=== PATIENT | male | born 1965 | race Caucasian/White ===

== ENCOUNTER 2022-04-07 09:08 | Inpatient (IN) ==
[2022-04-07 09:50] LABS: Basophils # 0.1 K/mcL (0.0-0.2); Basophils % 0.4 %; Eosinophils % 0.1 %; Hematocrit 40.8 % (37.5-50.1); Immature Granulocytes % 2.8 % (0-4); Lymphocytes # 0.8 K/mcL (0.6-4.6); Lymphocytes % 4.3 %; Mean Corpuscular HGB Conc 34.3 g/dL (31.6-35.5); Mean Corpuscular Volume 90.3 fL (83.0-100.0); Mean Platelet Volume 9.4 fL (9.4-12.4); Monocytes # 1.3 K/mcL (0.0-1.3); Monocytes % 6.6 %; Neutrophils # 16.8 K/mcL (1.6-8.9); Platelet Count 651 K/mcL (140-400); Red Blood Count 4.52 M/mcL (4.19-5.50); Red Cell Distribution Width 13.1 % (11.5-14.5); Segmented Neutrophils % 85.8 %; White Blood Count 19.5 K/mcL (4.3-11.1)
[2022-04-07 10:04] LABS: Bilirubin,Urine Negative (Negative); Blood,Urine Negative (Negative); Clarity,Urine Clear (Clear); Color,Urine Light-Yellow (Yellow); Glucose,Urine (UA) Normal (Normal); Ketones,Urine Negative (Negative); Leukocyte Esterase,Urine Negative (Negative); Nitrite,Urine Negative (Negative); Protein,Urine Trace mg/dL (Neg-Trace); Specific Gravity,Urine 1.026 (1.010-1.025); Urobilinogen,Urine Normal (Normal)
[2022-04-07 10:11] LABS: BUN/Creatinine Ratio 22 (6-26); Blood Urea Nitrogen 30 mg/dL (6-20); Calcium 9.8 mg/dL (8.6-10.3); Carbon Dioxide 31 mEq/L (23-29); Chloride 94 mEq/L (98-107); Glucose 149 mg/dL (70-105); Osmolality,Calculated 287 (280-300); Potassium 3.8 mEq/L (3.5-5.1); Sodium 134 mEq/L (136-145); eGFR For African Americans > 60 (> 60); eGFR For Non-African Americans 52 (> 60)
[2022-04-07] MEDS ORDERED: Iopamidol - 370 500 ML MLS IVP ONE (10:43)
[2022-04-07 11:06] LABS: Alanine Aminotransferase 40 Units/L (7-52); Albumin 3.9 g/dL (3.5-5.7); Alkaline Phosphatase 112 Units/L (34-104); Aspartate Amino Transferase 24 Units/L (13-39); Bilirubin,Direct 0.1 mg/dL (0.0-0.2); Bilirubin,Indirect 0.3 mg/dL (0.0-1.0); Bilirubin,Total 0.4 mg/dL (0.3-1.0); Globulin 4.1 g/dL (2.4-3.5); Lipase 15 Units/L (11-82)
[2022-04-07] MEDS ORDERED: Gadolinium Contrast Agent (WT Based) IV PRN (11:15)
[2022-04-07] MEDS ORDERED: 0.9 % Sodium Chloride 1,000 ML IV ONE (11:15)
[2022-04-07] MEDS ORDERED: Morphine Sulfate 2 MG/ML SYRINGE IVP ONE (11:15)
[2022-04-07] MEDS ORDERED: Ketorolac 30 MG/ML VIAL IVP ONE (11:15)
[2022-04-07] MEDS ORDERED: Ondansetron 4 MG/2 ML VIAL IVP PRN (11:16)
[2022-04-07 11:41] LABS: INR 1.2; Prothrombin Time 13.8 Seconds (9.4-12.1)
[2022-04-07 11:44] LABS: Activated Partial Thrombo Time 27.6 Seconds (26.0-36.0)
[2022-04-07 11:51] LABS: C-Reactive Protein 169 mg/L (Less than 10)
[2022-04-07] MEDS ORDERED: cefTRIAXone 2,000 MG in 0.9 % Sodium Chloride 20 ML IVP ONE (12:19)
[2022-04-07] MEDS ORDERED: Vancomycin 1,250 MG/262.5 ML IV.SOLN IVPB ONE (12:30)
[2022-04-07 13:05] LABS: Troponin I < 0.03 ng/mL (< 0.04)
[2022-04-07] MEDS ORDERED: *HR* HYDROmorphone (PF) 1 MG/ML SYRINGE IVP ONE ×2 (15:47→21:49)
[2022-04-07] MEDS ORDERED: Naloxone 0.4 MG/ML INJ IVP PRN (15:55)
[2022-04-07] MEDS: *HR* Heparin 5,000 UNIT/ML VIAL SQ SCH (17:54)
[2022-04-07] MEDS: Ketorolac 30 MG/ML VIAL IVP PRN (21:39)
[2022-04-08] MEDS ORDERED: *HR* HYDROcodone/Acet 10/325 mg TABLET PO ONE (03:08)
[2022-04-08 04:40] LABS: BUN/Creatinine Ratio 28 (6-26); Blood Urea Nitrogen 34 mg/dL (6-20); Calcium 8.5 mg/dL (8.6-10.3); Carbon Dioxide 25 mEq/L (23-29); Chloride 98 mEq/L (98-107); Glucose 102 mg/dL (70-105); Osmolality,Calculated 280 (280-300); Potassium 3.5 mEq/L (3.5-5.1); Sodium 131 mEq/L (136-145); eGFR For African Americans > 60 (> 60); eGFR For Non-African Americans > 60 (> 60)
[2022-04-08 04:48] LABS: Hematocrit 37.4 % (37.5-50.1); Hemoglobin 12.6 g/dL (12.9-16.9); Mean Corpuscular HGB Conc 33.7 g/dL (31.6-35.5); Mean Corpuscular Hemoglobin 30.4 pg (28.0-33.3); Mean Corpuscular Volume 90.3 fL (83.0-100.0); Mean Platelet Volume 9.5 fL (9.4-12.4); Platelet Count 548 K/mcL (140-400); Red Blood Count 4.14 M/mcL (4.19-5.50); White Blood Count 21.5 K/mcL (4.3-11.1)
[2022-04-08] MEDS: Ketorolac 30 MG/ML VIAL IVP PRN ×3 (04:57→20:29)
[2022-04-08] MEDS: *HR* Heparin 5,000 UNIT/ML VIAL SQ SCH ×2 (06:31→17:16)
[2022-04-08 06:40] LABS: A.calcoaceticus-baumannii cplx Not Detected (Not Detect); Bacteroides fragilis by PCR Not Detected (Not Detect); Enterobacterales by PCR Not Detected (Not Detect); Enterococcus faecalis by PCR Not Detected (Not Detect); Enterococcus faecium by PCR Not Detected (Not Detect); Escherichia coli by PCR Not Detected (Not Detect); Klebsiella aerogenes by PCR Not Detected (Not Detect); Staph epidermidis by PCR Not Detected (Not Detect); Staph lugdunensis by PCR Not Detected (Not Detect); Staphylococcus aureus by PCR DETECTED (Not Detect); Streptococcus agalactiae(B)PCR Not Detected (Not Detect); Streptococcus by PCR Not Detected (Not Detect); Streptococcus pneumoniae PCR Not Detected (Not Detect); Streptococcus pyogenes (A) PCR Not Detected (Not Detect); mecA/C & MREJ (MRSA) Gene DETECTED (Not Detect)
[2022-04-08 06:41] LABS: Candida albicans by PCR Not Detected (Not Detect); Candida auris by PCR Not Detected (Not Detect); Candida glabrata by PCR Not Detected (Not Detect); Candida krusei by PCR Not Detected (Not Detect); Candida parapsilosis by PCR Not Detected (Not Detect); Candida tropicalis by PCR Not Detected (Not Detect); Crypto. neoformans/gattii PCR Not Detected (Not Detect); Enterobacter cloacae Cmplx PCR Not Detected (Not Detect); Klebs. pneumoniae group by PCR Not Detected (Not Detect); Klebsiella oxytoca by PCR Not Detected (Not Detect); Proteus by PCR Not Detected (Not Detect); Pseudomonas aeruginosa by PCR Not Detected (Not Detect); Salmonella species by PCR Not Detected (Not Detect); Serratia marcescens by PCR Not Detected (Not Detect); Stenotrophomonas maltophilia Not Detected (Not Detect)
[2022-04-08] MEDS ORDERED: *HR* HYDROmorphone (PF) 1 MG/ML SYRINGE IVP ONE (09:42)
[2022-04-08] MEDS ORDERED: 0.9 % Sodium Chloride 1,000 ML IVC ONE (09:42)
[2022-04-08] MEDS ORDERED: *HR* FentaNYL (PF) 100 MCG/2 ML VIAL IVP ONE (10:29)
[2022-04-08] MEDS ORDERED: *HR* Midazolam HCl 2 MG/2 ML VIAL IVP ONE (10:29)
[2022-04-08] MEDS: Ondansetron 4 MG/2 ML VIAL IVP PRN (11:42)
[2022-04-08] MEDS ORDERED: cefTRIAXone 2,000 MG in 0.9 % Sodium Chloride 20 ML IVP SCH (12:00)
[2022-04-08] MEDS: Vancomycin 1,250 MG/262.5 ML IV.SOLN IVPB SCH (12:55)
[2022-04-08] MEDS: amLODIPine 5 MG TABLET PO SCH (13:01)
[2022-04-08] MEDS: methocarbamoL 750 MG TABLET PO SCH ×2 (15:17→20:28)
[2022-04-08 15:51] LABS: Hepatitis B Surface Antibody 39.41 mIU/mL
[2022-04-08 16:02] LABS: Hepatitis B Surface Antigen Nonreactive (Nonreactive)
[2022-04-08 17:25] LABS: Amphetamine Screen,Urine Negative ng/mL (Cutoff=1000); Barbiturate Screen,Urine Negative ng/mL (Cutoff=200); Benzodiazepines Screen,Urine Positive ng/mL (Cutoff=200); Cannabinoid Screen,Urine Positive ng/mL (Cutoff = 50); Cocaine Screen,Urine Negative ng/mL (Cutoff= 300); Opiate Screen,Urine Positive ng/mL (Cutoff=300); Phencyclidine Screen,Urine Negative ng/mL (Cutoff=25)
[2022-04-08] MEDS: Topiramate 100 MG TABLET PO SCH (20:28)
[2022-04-09 01:39] LABS: Hematocrit 36.2 % (37.5-50.1); Hemoglobin 12.2 g/dL (12.9-16.9); Mean Corpuscular HGB Conc 33.7 g/dL (31.6-35.5); Mean Corpuscular Volume 91.9 fL (83.0-100.0); Mean Platelet Volume 9.2 fL (9.4-12.4); Platelet Count 432 K/mcL (140-400); Red Blood Count 3.94 M/mcL (4.19-5.50); Red Cell Distribution Width 13.2 % (11.5-14.5); White Blood Count 22.2 K/mcL (4.3-11.1)
[2022-04-09 02:01] LABS: BUN/Creatinine Ratio 31 (6-26); Blood Urea Nitrogen 33 mg/dL (6-20); Calcium 8.3 mg/dL (8.6-10.3); Carbon Dioxide 27 mEq/L (23-29); Chloride 97 mEq/L (98-107); Glucose 100 mg/dL (70-105); Osmolality,Calculated 283 (280-300); Potassium 3.4 mEq/L (3.5-5.1); Sodium 133 mEq/L (136-145); eGFR For African Americans > 60 (> 60); eGFR For Non-African Americans > 60 (> 60)
[2022-04-09] MEDS: Ondansetron 4 MG/2 ML VIAL IVP PRN ×2 (02:17→17:35)
[2022-04-09] MEDS: Ketorolac 30 MG/ML VIAL IVP PRN (02:18)
[2022-04-09] MEDS: *HR* Heparin 5,000 UNIT/ML VIAL SQ SCH ×2 (05:24→17:18)
[2022-04-09] MEDS: methocarbamoL 750 MG TABLET PO SCH ×3 (09:42→20:14)
[2022-04-09] MEDS: allopurinoL 300 MG TABLET PO SCH (09:42)
[2022-04-09] MEDS: Topiramate 100 MG TABLET PO SCH ×2 (09:42→20:14)
[2022-04-09] MEDS: amLODIPine 5 MG TABLET PO SCH (09:42)
[2022-04-09] MEDS: Ketorolac 30 MG/ML VIAL IVP SCH ×2 (12:03→17:18)
[2022-04-09] MEDS: Vancomycin 1,250 MG/262.5 ML IV.SOLN IVPB SCH (12:04)
[2022-04-09] MEDS ORDERED: Ringers Solution, Lactated 1,000 ML IVC ONE (17:16)
[2022-04-09] MEDS: Acetaminophen 325 MG TABLET PO PRN (20:13)
[2022-04-09] MEDS: Melatonin 3 MG TABLET PO PRN (21:40)
[2022-04-10] MEDS: Ketorolac 30 MG/ML VIAL IVP SCH ×5 (00:58→23:31)
[2022-04-10] MEDS: Vancomycin 1,250 MG/262.5 ML IV.SOLN IVPB SCH ×3 (00:58→23:31)
[2022-04-10] MEDS: *HR* Heparin 5,000 UNIT/ML VIAL SQ SCH ×2 (05:50→17:07)
[2022-04-10 07:21] LABS: Hematocrit 34.1 % (37.5-50.1); Hemoglobin 11.7 g/dL (12.9-16.9); Mean Corpuscular HGB Conc 34.3 g/dL (31.6-35.5); Mean Corpuscular Volume 90.5 fL (83.0-100.0); Mean Platelet Volume 9.2 fL (9.4-12.4); Platelet Count 409 K/mcL (140-400); Red Blood Count 3.77 M/mcL (4.19-5.50); White Blood Count 23.3 K/mcL (4.3-11.1)
[2022-04-10 07:41] LABS: BUN/Creatinine Ratio 32 (6-26); Blood Urea Nitrogen 29 mg/dL (6-20); Calcium 8.1 mg/dL (8.6-10.3); Carbon Dioxide 25 mEq/L (23-29); Chloride 100 mEq/L (98-107); Glucose 123 mg/dL (70-105); Osmolality,Calculated 281 (280-300); Potassium 3.3 mEq/L (3.5-5.1); Sodium 132 mEq/L (136-145); eGFR For African Americans > 60 (> 60); eGFR For Non-African Americans > 60 (> 60)
[2022-04-10] MEDS: Topiramate 100 MG TABLET PO SCH ×2 (07:42→21:34)
[2022-04-10] MEDS: methocarbamoL 750 MG TABLET PO SCH ×3 (07:42→21:39)
[2022-04-10] MEDS: amLODIPine 5 MG TABLET PO SCH (07:42)
[2022-04-10] MEDS: allopurinoL 300 MG TABLET PO SCH (07:43)
[2022-04-10] MEDS: Ondansetron 4 MG/2 ML VIAL IVP PRN (10:55)
[2022-04-10] MEDS ORDERED: polyethylene glycoL 3350 17 GM POWD.PACK PO PRN (17:19)
[2022-04-10] MEDS: Sennosides/Docusate Sodium TABLET PO SCH (21:34)
[2022-04-10] MEDS: Melatonin 3 MG TABLET PO PRN (21:38)
[2022-04-10] MEDS: polyethylene glycoL 3350 17 GM POWD.PACK PO SCH (21:39)
[2022-04-10] MEDS ORDERED: Morphine Sulfate 2 MG/ML SYRINGE IVP ONE (23:39)
[2022-04-11 05:14] LABS: Basophils # 0.2 K/mcL (0.0-0.2); Basophils % 0.9 %; Eosinophils # 0.2 K/mcL (0.0-0.6); Hematocrit 39.8 % (37.5-50.1); Hemoglobin 13.1 g/dL (12.9-16.9); Immature Granulocytes % 3.8 % (0-4); Lymphocytes # 1.6 K/mcL (0.6-4.6); Lymphocytes % 8.4 %; Mean Corpuscular HGB Conc 32.9 g/dL (31.6-35.5); Mean Corpuscular Hemoglobin 30.5 pg (28.0-33.3); Mean Corpuscular Volume 92.8 fL (83.0-100.0); Mean Platelet Volume 9.2 fL (9.4-12.4); Monocytes # 1.5 K/mcL (0.0-1.3); Monocytes % 8.3 %; Neutrophils # 14.4 K/mcL (1.6-8.9); Platelet Count 425 K/mcL (140-400); Red Blood Count 4.29 M/mcL (4.19-5.50); Red Cell Distribution Width 12.9 % (11.5-14.5); Segmented Neutrophils % 77.6 %; White Blood Count 18.5 K/mcL (4.3-11.1)
[2022-04-11] MEDS: Ketorolac 30 MG/ML VIAL IVP SCH ×3 (05:26→17:42)
[2022-04-11] MEDS: *HR* Heparin 5,000 UNIT/ML VIAL SQ SCH ×2 (05:26→17:41)
[2022-04-11 05:36] LABS: BUN/Creatinine Ratio 26 (6-26); Blood Urea Nitrogen 24 mg/dL (6-20); Calcium 8.4 mg/dL (8.6-10.3); Carbon Dioxide 23 mEq/L (23-29); Chloride 101 mEq/L (98-107); Glucose 104 mg/dL (70-105); Osmolality,Calculated 276 (280-300); Potassium 4.1 mEq/L (3.5-5.1); Sodium 131 mEq/L (136-145); eGFR For African Americans > 60 (> 60); eGFR For Non-African Americans > 60 (> 60)
[2022-04-11 05:37] LABS: Albumin 2.9 g/dL (3.5-5.7); Albumin/Globulin Ratio 0.8 (1.1-2.2); Bilirubin,Direct 0.3 mg/dL (0.0-0.2); Bilirubin,Indirect 0.3 mg/dL (0.0-1.0); Bilirubin,Total 0.6 mg/dL (0.3-1.0); Globulin 3.5 g/dL (2.4-3.5); Magnesium 1.9 mg/dL (1.6-2.6); Phosphorous 2.6 mg/dL (2.7-4.5); Total Protein 6.4 g/dL (6.4-8.9)
[2022-04-11] MEDS ORDERED: Lidocaine Viscous Oral Soln 15 ML SOLUTION MM PRN (08:36)
[2022-04-11] MEDS ORDERED: 0.9 % Sodium Chloride 500 ML IVC ONE (08:37)
[2022-04-11] MEDS: *HR* Midazolam HCl 5 MG/5 ML VIAL IVP PRN ×2 (09:15→09:20)
[2022-04-11] MEDS: *HR* FentaNYL (PF) 100 MCG/2 ML VIAL IVP PRN ×2 (09:15→09:20)
[2022-04-11] MEDS: polyethylene glycoL 3350 17 GM POWD.PACK PO SCH ×2 (10:37→11:16)
[2022-04-11] MEDS: Topiramate 100 MG TABLET PO SCH ×2 (11:13→20:42)
[2022-04-11] MEDS: amLODIPine 5 MG TABLET PO SCH (11:13)
[2022-04-11] MEDS: allopurinoL 300 MG TABLET PO SCH (11:13)
[2022-04-11] MEDS: Sennosides/Docusate Sodium TABLET PO SCH ×2 (11:13→20:43)
[2022-04-11] MEDS: methocarbamoL 750 MG TABLET PO SCH ×3 (11:14→20:43)
[2022-04-11] MEDS ORDERED: Iopamidol - 370 500 ML MLS IVP ONE (12:32)
[2022-04-11] MEDS: Vancomycin 1,250 MG/262.5 ML IV.SOLN IVPB SCH ×2 (13:05→23:16)
[2022-04-12] MEDS: *HR* HYDROmorphone (PF) 1 MG/ML SYRINGE IVP PRN ×5 (00:58→19:36)
[2022-04-12 02:09] LABS: Hematocrit 35.5 % (37.5-50.1); Hemoglobin 12.2 g/dL (12.9-16.9); Mean Corpuscular HGB Conc 34.4 g/dL (31.6-35.5); Mean Corpuscular Hemoglobin 30.9 pg (28.0-33.3); Mean Corpuscular Volume 89.9 fL (83.0-100.0); Mean Platelet Volume 9.3 fL (9.4-12.4); Platelet Count 431 K/mcL (140-400); Red Blood Count 3.95 M/mcL (4.19-5.50); Red Cell Distribution Width 12.8 % (11.5-14.5); White Blood Count 17.4 K/mcL (4.3-11.1)
[2022-04-12] MEDS: Acetaminophen 325 MG TABLET PO PRN ×4 (02:25→19:36)
[2022-04-12 02:31] LABS: BUN/Creatinine Ratio 28 (6-26); Blood Urea Nitrogen 22 mg/dL (6-20); C-Reactive Protein 95 mg/L (Less than 10); Calcium 7.9 mg/dL (8.6-10.3); Carbon Dioxide 19 mEq/L (23-29); Chloride 103 mEq/L (98-107); Glucose 103 mg/dL (70-105); Osmolality,Calculated 276 (280-300); Potassium 3.7 mEq/L (3.5-5.1); Sodium 131 mEq/L (136-145); eGFR For African Americans > 60 (> 60); eGFR For Non-African Americans > 60 (> 60)
[2022-04-12] MEDS: *HR* Heparin 5,000 UNIT/ML VIAL SQ SCH ×2 (04:22→19:04)
[2022-04-12] MEDS: Ondansetron 4 MG/2 ML VIAL IVP PRN (07:22)
[2022-04-12] MEDS: allopurinoL 300 MG TABLET PO SCH (08:58)
[2022-04-12] MEDS: Sennosides/Docusate Sodium TABLET PO SCH ×2 (08:58→21:26)
[2022-04-12] MEDS: amLODIPine 5 MG TABLET PO SCH (08:59)
[2022-04-12] MEDS: Topiramate 100 MG TABLET PO SCH ×2 (08:59→19:37)
[2022-04-12] MEDS: polyethylene glycoL 3350 17 GM POWD.PACK PO SCH (08:59)
[2022-04-12] MEDS: methocarbamoL 750 MG TABLET PO SCH ×3 (09:00→19:38)
[2022-04-12] MEDS ORDERED: 0.9 % Sodium Chloride 500 ML ONE (10:42)
[2022-04-12] MEDS: Vancomycin 1,500 MG/265 ML IV.SOLN IVPB SCH (14:29)
[2022-04-13] MEDS: Vancomycin 1,500 MG/265 ML IV.SOLN IVPB SCH ×2 (00:07→17:12)
[2022-04-13] MEDS: *HR* HYDROmorphone (PF) 1 MG/ML SYRINGE IVP PRN ×9 (00:07→23:46)
[2022-04-13] MEDS: Acetaminophen 325 MG TABLET PO PRN ×4 (01:52→21:26)
[2022-04-13] MEDS: *HR* Heparin 5,000 UNIT/ML VIAL SQ SCH ×2 (05:57→17:10)
[2022-04-13 06:29] LABS: Hematocrit 38.4 % (37.5-50.1); Hemoglobin 13.2 g/dL (12.9-16.9); Mean Corpuscular HGB Conc 34.4 g/dL (31.6-35.5); Mean Corpuscular Hemoglobin 30.9 pg (28.0-33.3); Mean Corpuscular Volume 89.9 fL (83.0-100.0); Mean Platelet Volume 9.3 fL (9.4-12.4); Platelet Count 499 K/mcL (140-400); Red Blood Count 4.27 M/mcL (4.19-5.50); Red Cell Distribution Width 12.7 % (11.5-14.5); White Blood Count 18.8 K/mcL (4.3-11.1)
[2022-04-13 06:38] LABS: BUN/Creatinine Ratio 25 (6-26); Blood Urea Nitrogen 19 mg/dL (6-20); Calcium 8.5 mg/dL (8.6-10.3); Carbon Dioxide 17 mEq/L (23-29); Chloride 103 mEq/L (98-107); Glucose 103 mg/dL (70-105); Osmolality,Calculated 275 (280-300); Potassium 3.7 mEq/L (3.5-5.1); Sodium 131 mEq/L (136-145)
[2022-04-13] MEDS: amLODIPine 5 MG TABLET PO SCH (09:29)
[2022-04-13] MEDS: Sennosides/Docusate Sodium TABLET PO SCH ×2 (09:30→22:12)
[2022-04-13] MEDS: methocarbamoL 750 MG TABLET PO SCH ×3 (09:31→21:31)
[2022-04-13] MEDS: allopurinoL 300 MG TABLET PO SCH (09:31)
[2022-04-13] MEDS: Topiramate 100 MG TABLET PO SCH ×2 (09:31→22:12)
[2022-04-13] MEDS: polyethylene glycoL 3350 17 GM POWD.PACK PO SCH (09:42)
[2022-04-13] MEDS ORDERED: *HR* FentaNYL (PF) 100 MCG/2 ML VIAL ONE (13:33)
[2022-04-13] MEDS ORDERED: Sugammadex Sodium 200 MG/2 ML VIAL IV ONE (13:33)
[2022-04-13] MEDS ORDERED: Ketamine HCL *QUVA* 50mg (1mL) SYRINGE ONE (13:33)
[2022-04-13] MEDS ORDERED: *HR* Midazolam HCl 2 MG/2 ML VIAL ONE (13:33)
[2022-04-13] MEDS ORDERED: *HR* OxyCODONE Immed Rel 5 MG TABLET PO ONE (16:12)
[2022-04-14] MEDS: Acetaminophen 325 MG TABLET PO PRN ×2 (02:03→20:09)
[2022-04-14] MEDS: *HR* HYDROmorphone (PF) 1 MG/ML SYRINGE IVP PRN ×4 (05:18→23:48)
[2022-04-14] MEDS: *HR* Heparin 5,000 UNIT/ML VIAL SQ SCH ×2 (05:19→16:59)
[2022-04-14 05:48] LABS: Basophils # 0.2 K/mcL (0.0-0.2); Eosinophils # 0.1 K/mcL (0.0-0.6); Eosinophils % 0.6 %; Hematocrit 37.4 % (37.5-50.1); Hemoglobin 12.7 g/dL (12.9-16.9); Immature Granulocytes % 3.1 % (0-4); Lymphocytes # 1.8 K/mcL (0.6-4.6); Lymphocytes % 11.6 %; Mean Corpuscular Hemoglobin 30.8 pg (28.0-33.3); Mean Corpuscular Volume 90.6 fL (83.0-100.0); Mean Platelet Volume 9.3 fL (9.4-12.4); Monocytes # 1.5 K/mcL (0.0-1.3); Monocytes % 9.5 %; Neutrophils # 11.7 K/mcL (1.6-8.9); Platelet Count 575 K/mcL (140-400); Red Blood Count 4.13 M/mcL (4.19-5.50); Red Cell Distribution Width 12.7 % (11.5-14.5); Segmented Neutrophils % 74.2 %; White Blood Count 15.7 K/mcL (4.3-11.1)
[2022-04-14 06:08] LABS: BUN/Creatinine Ratio 29 (6-26); Blood Urea Nitrogen 23 mg/dL (6-20); Calcium 8.4 mg/dL (8.6-10.3); Carbon Dioxide 20 mEq/L (23-29); Chloride 105 mEq/L (98-107); Glucose 97 mg/dL (70-105); Osmolality,Calculated 282 (280-300); Potassium 3.7 mEq/L (3.5-5.1); Sodium 134 mEq/L (136-145)
[2022-04-14] MEDS: Vancomycin 1,500 MG/265 ML IV.SOLN IVPB SCH ×2 (06:17→16:59)
[2022-04-14] MEDS: amLODIPine 5 MG TABLET PO SCH (08:00)
[2022-04-14] MEDS: Topiramate 100 MG TABLET PO SCH ×2 (08:00→20:09)
[2022-04-14] MEDS: allopurinoL 300 MG TABLET PO SCH (08:00)
[2022-04-14] MEDS: Sennosides/Docusate Sodium TABLET PO SCH ×2 (08:00→20:09)
[2022-04-14] MEDS: polyethylene glycoL 3350 17 GM POWD.PACK PO SCH (08:02)
[2022-04-14] MEDS: methocarbamoL 750 MG TABLET PO SCH ×3 (08:02→20:09)
[2022-04-14] MEDS ORDERED: *HR* HYDROmorphone (PF) 1 MG/ML SYRINGE IVP ONE (13:43)
[2022-04-14] MEDS: Melatonin 3 MG TABLET PO PRN (20:09)
[2022-04-15 01:43] LABS: Basophils # 0.1 K/mcL (0.0-0.2); Basophils % 0.8 %; Eosinophils # 0.1 K/mcL (0.0-0.6); Eosinophils % 0.9 %; Hematocrit 36.4 % (37.5-50.1); Hemoglobin 12.4 g/dL (12.9-16.9); Immature Granulocytes % 2.4 % (0-4); Lymphocytes # 1.6 K/mcL (0.6-4.6); Lymphocytes % 10.2 %; Mean Corpuscular HGB Conc 34.1 g/dL (31.6-35.5); Mean Corpuscular Hemoglobin 30.5 pg (28.0-33.3); Mean Corpuscular Volume 89.7 fL (83.0-100.0); Monocytes # 1.7 K/mcL (0.0-1.3); Monocytes % 11.4 %; Neutrophils # 11.3 K/mcL (1.6-8.9); Platelet Count 634 K/mcL (140-400); Red Blood Count 4.06 M/mcL (4.19-5.50); Red Cell Distribution Width 12.7 % (11.5-14.5); Segmented Neutrophils % 74.3 %; White Blood Count 15.3 K/mcL (4.3-11.1)
[2022-04-15 02:06] LABS: Blood Urea Nitrogen 20 mg/dL (6-20); Calcium 8.4 mg/dL (8.6-10.3); Carbon Dioxide 20 mEq/L (23-29); Chloride 104 mEq/L (98-107); Glucose 101 mg/dL (70-105); Osmolality,Calculated 279 (280-300); Potassium 3.6 mEq/L (3.5-5.1); Sodium 133 mEq/L (136-145)
[2022-04-15 03:02] LABS: BUN/Creatinine Ratio 27 (6-26)
[2022-04-15] MEDS: *HR* Heparin 5,000 UNIT/ML VIAL SQ SCH ×2 (05:01→17:03)
[2022-04-15] MEDS: *HR* HYDROmorphone (PF) 1 MG/ML SYRINGE IVP PRN ×3 (05:01→14:29)
[2022-04-15] MEDS: Vancomycin 1,500 MG/265 ML IV.SOLN IVPB SCH ×2 (05:07→17:06)
[2022-04-15] MEDS: Acetaminophen 325 MG TABLET PO PRN ×4 (07:53→21:10)
[2022-04-15] MEDS: polyethylene glycoL 3350 17 GM POWD.PACK PO SCH (07:53)
[2022-04-15] MEDS: allopurinoL 300 MG TABLET PO SCH (07:54)
[2022-04-15] MEDS: Topiramate 100 MG TABLET PO SCH ×2 (07:54→21:08)
[2022-04-15] MEDS: methocarbamoL 750 MG TABLET PO SCH ×3 (07:54→21:08)
[2022-04-15] MEDS: amLODIPine 5 MG TABLET PO SCH (07:54)
[2022-04-15] MEDS: Sennosides/Docusate Sodium TABLET PO SCH ×2 (07:54→21:08)
[2022-04-15] MEDS: Gabapentin 300 MG CAPSULE PO SCH ×3 (10:13→21:08)
[2022-04-16] MEDS: *HR* HYDROmorphone (PF) 1 MG/ML SYRINGE IVP PRN ×4 (02:16→20:46)
[2022-04-16] MEDS: Acetaminophen 325 MG TABLET PO PRN ×5 (05:32→22:47)
[2022-04-16] MEDS: Vancomycin 1,500 MG/265 ML IV.SOLN IVPB SCH ×2 (05:32→17:09)
[2022-04-16] MEDS: *HR* Heparin 5,000 UNIT/ML VIAL SQ SCH ×2 (05:32→17:09)
[2022-04-16] MEDS: allopurinoL 300 MG TABLET PO SCH (07:43)
[2022-04-16] MEDS: Topiramate 100 MG TABLET PO SCH ×2 (07:43→20:46)
[2022-04-16] MEDS: amLODIPine 5 MG TABLET PO SCH (07:43)
[2022-04-16] MEDS: methocarbamoL 750 MG TABLET PO SCH ×3 (07:43→20:46)
[2022-04-16] MEDS: Sennosides/Docusate Sodium TABLET PO SCH ×2 (07:44→20:46)
[2022-04-16] MEDS: polyethylene glycoL 3350 17 GM POWD.PACK PO SCH (07:44)
[2022-04-16] MEDS: Gabapentin 300 MG CAPSULE PO SCH ×3 (07:44→20:46)
[2022-04-16 09:59] LABS: Basophils # 0.1 K/mcL (0.0-0.2); Eosinophils # 0.2 K/mcL (0.0-0.6); Eosinophils % 1.3 %; Hematocrit 37.6 % (37.5-50.1); Hemoglobin 12.7 g/dL (12.9-16.9); Immature Granulocytes % 1.3 % (0-4); Lymphocytes # 1.5 K/mcL (0.6-4.6); Lymphocytes % 10.1 %; Mean Corpuscular HGB Conc 33.8 g/dL (31.6-35.5); Mean Corpuscular Hemoglobin 30.3 pg (28.0-33.3); Mean Corpuscular Volume 89.7 fL (83.0-100.0); Mean Platelet Volume 9.3 fL (9.4-12.4); Monocytes # 1.2 K/mcL (0.0-1.3); Monocytes % 8.5 %; Neutrophils # 11.2 K/mcL (1.6-8.9); Platelet Count 741 K/mcL (140-400); Red Blood Count 4.19 M/mcL (4.19-5.50); Red Cell Distribution Width 12.8 % (11.5-14.5); Segmented Neutrophils % 77.8 %; White Blood Count 14.4 K/mcL (4.3-11.1)
[2022-04-16 10:19] LABS: BUN/Creatinine Ratio 23 (6-26); Blood Urea Nitrogen 17 mg/dL (6-20); Carbon Dioxide 22 mEq/L (23-29); Chloride 101 mEq/L (98-107); Glucose 133 mg/dL (70-105); Osmolality,Calculated 277 (280-300); Potassium 3.5 mEq/L (3.5-5.1); Sodium 132 mEq/L (136-145)
[2022-04-17] MEDS: Acetaminophen 325 MG TABLET PO PRN ×4 (03:04→15:58)
[2022-04-17] MEDS: Vancomycin 1,250 MG/262.5 ML IV.SOLN IVPB SCH ×2 (06:05→18:18)
[2022-04-17] MEDS: *HR* Heparin 5,000 UNIT/ML VIAL SQ SCH ×2 (06:06→18:18)
[2022-04-17] MEDS ORDERED: Iopamidol - 370 500 ML MLS IVP ONE (08:26)
[2022-04-17] MEDS: polyethylene glycoL 3350 17 GM POWD.PACK PO SCH (08:27)
[2022-04-17] MEDS: allopurinoL 300 MG TABLET PO SCH (08:27)
[2022-04-17] MEDS: amLODIPine 5 MG TABLET PO SCH (08:27)
[2022-04-17] MEDS: Gabapentin 300 MG CAPSULE PO SCH ×3 (08:27→19:41)
[2022-04-17] MEDS: Topiramate 100 MG TABLET PO SCH ×2 (08:27→19:41)
[2022-04-17] MEDS: methocarbamoL 750 MG TABLET PO SCH ×3 (08:27→19:41)
[2022-04-17] MEDS: Sennosides/Docusate Sodium TABLET PO SCH ×2 (08:28→19:41)
[2022-04-17] MEDS: *HR* HYDROmorphone (PF) 1 MG/ML SYRINGE IVP PRN ×2 (10:01→18:25)
[2022-04-18 05:32] LABS: Basophils # 0.1 K/mcL (0.0-0.2); Basophils % 0.4 %; Eosinophils # 0.4 K/mcL (0.0-0.6); Eosinophils % 3.7 %; Hematocrit 35.1 % (37.5-50.1); Hemoglobin 11.8 g/dL (12.9-16.9); Immature Granulocytes % 1.1 % (0-4); Lymphocytes # 1.4 K/mcL (0.6-4.6); Lymphocytes % 12.1 %; Mean Corpuscular HGB Conc 33.6 g/dL (31.6-35.5); Mean Corpuscular Hemoglobin 30.6 pg (28.0-33.3); Mean Corpuscular Volume 90.9 fL (83.0-100.0); Mean Platelet Volume 9.2 fL (9.4-12.4); Monocytes # 1.3 K/mcL (0.0-1.3); Monocytes % 11.7 %; Neutrophils # 8.2 K/mcL (1.6-8.9); Platelet Count 753 K/mcL (140-400); Red Blood Count 3.86 M/mcL (4.19-5.50); Red Cell Distribution Width 13.1 % (11.5-14.5); White Blood Count 11.5 K/mcL (4.3-11.1)
[2022-04-18] MEDS: *HR* HYDROmorphone (PF) 1 MG/ML SYRINGE IVP PRN ×2 (05:38→17:14)
[2022-04-18] MEDS: *HR* Heparin 5,000 UNIT/ML VIAL SQ SCH ×2 (05:39→18:08)
[2022-04-18] MEDS ORDERED: Vancomycin 1,250 MG/262.5 ML IV.SOLN IVPB SCH (06:00)
[2022-04-18 06:15] LABS: BUN/Creatinine Ratio 16 (6-26); Blood Urea Nitrogen 15 mg/dL (6-20); Calcium 8.4 mg/dL (8.6-10.3); Carbon Dioxide 22 mEq/L (23-29); Chloride 103 mEq/L (98-107); Glucose 101 mg/dL (70-105); Osmolality,Calculated 275 (280-300); Potassium 3.7 mEq/L (3.5-5.1); Sodium 132 mEq/L (136-145)
[2022-04-18] MEDS: polyethylene glycoL 3350 17 GM POWD.PACK PO SCH (07:48)
[2022-04-18] MEDS: allopurinoL 300 MG TABLET PO SCH (07:49)
[2022-04-18] MEDS: Acetaminophen 325 MG TABLET PO PRN ×3 (07:49→20:42)
[2022-04-18] MEDS: methocarbamoL 750 MG TABLET PO SCH ×3 (07:49→20:42)
[2022-04-18] MEDS: Topiramate 100 MG TABLET PO SCH ×2 (07:49→20:42)
[2022-04-18] MEDS: Gabapentin 300 MG CAPSULE PO SCH ×3 (07:49→20:42)
[2022-04-18] MEDS: amLODIPine 5 MG TABLET PO SCH (07:49)
[2022-04-18] MEDS: Sennosides/Docusate Sodium TABLET PO SCH ×2 (07:50→20:42)
[2022-04-18] MEDS: FluocinoNIDE 0.05% CRM 15 GM TUBE TP SCH (20:42)
[2022-04-19] MEDS: *HR* Heparin 5,000 UNIT/ML VIAL SQ SCH ×2 (05:10→16:36)
[2022-04-19 06:08] LABS: Basophils # 0.1 K/mcL (0.0-0.2); Basophils % 0.6 %; Eosinophils # 0.4 K/mcL (0.0-0.6); Eosinophils % 4.2 %; Hematocrit 33.6 % (37.5-50.1); Hemoglobin 11.1 g/dL (12.9-16.9); Lymphocytes # 1.1 K/mcL (0.6-4.6); Lymphocytes % 12.3 %; Mean Corpuscular Hemoglobin 30.7 pg (28.0-33.3); Mean Corpuscular Volume 93.1 fL (83.0-100.0); Mean Platelet Volume 9.3 fL (9.4-12.4); Monocytes # 1.1 K/mcL (0.0-1.3); Monocytes % 12.3 %; Platelet Count 675 K/mcL (140-400); Red Blood Count 3.61 M/mcL (4.19-5.50); Red Cell Distribution Width 13.2 % (11.5-14.5); Segmented Neutrophils % 69.6 %; White Blood Count 8.6 K/mcL (4.3-11.1)
[2022-04-19 06:39] LABS: Calcium 8.6 mg/dL (8.6-10.3); Potassium 3.7 mEq/L (3.5-5.1)
[2022-04-19] MEDS: Acetaminophen 325 MG TABLET PO PRN ×3 (07:57→20:14)
[2022-04-19] MEDS: amLODIPine 5 MG TABLET PO SCH (07:57)
[2022-04-19] MEDS: Sennosides/Docusate Sodium TABLET PO SCH ×2 (07:58→22:53)
[2022-04-19] MEDS: methocarbamoL 750 MG TABLET PO SCH ×3 (07:58→22:53)
[2022-04-19] MEDS: Gabapentin 300 MG CAPSULE PO SCH ×3 (07:59→22:53)
[2022-04-19] MEDS: Topiramate 100 MG TABLET PO SCH ×2 (07:59→22:53)
[2022-04-19] MEDS: polyethylene glycoL 3350 17 GM POWD.PACK PO SCH (07:59)
[2022-04-19] MEDS: allopurinoL 300 MG TABLET PO SCH (07:59)
[2022-04-19] MEDS: *HR* HYDROmorphone (PF) 1 MG/ML SYRINGE IVP PRN (11:25)
[2022-04-19] MEDS: FluocinoNIDE 0.05% CRM 15 GM TUBE TP SCH (12:40)
[2022-04-19] MEDS ORDERED: *HR* HYDROmorphone (PF) 1 MG/ML SYRINGE IVP PRN (12:56)
[2022-04-19] MEDS: Vancomycin 1,750 MG/517.5 ML IV.SOLN IVPB SCH (15:38)
[2022-04-20] MEDS: FluocinoNIDE 0.05% CRM 15 GM TUBE TP SCH ×3 (00:33→20:47)
[2022-04-20] MEDS: Acetaminophen 325 MG TABLET PO PRN ×4 (02:02→20:45)
[2022-04-20] MEDS: *HR* Heparin 5,000 UNIT/ML VIAL SQ SCH ×2 (05:30→17:59)
[2022-04-20] MEDS: methocarbamoL 750 MG TABLET PO SCH ×3 (08:42→20:46)
[2022-04-20] MEDS: amLODIPine 5 MG TABLET PO SCH (08:42)
[2022-04-20] MEDS: Sennosides/Docusate Sodium TABLET PO SCH ×2 (08:43→20:46)
[2022-04-20] MEDS: Topiramate 100 MG TABLET PO SCH ×2 (08:43→20:59)
[2022-04-20] MEDS: Gabapentin 300 MG CAPSULE PO SCH ×3 (08:43→20:45)
[2022-04-20] MEDS: polyethylene glycoL 3350 17 GM POWD.PACK PO SCH (08:44)
[2022-04-20] MEDS: allopurinoL 300 MG TABLET PO SCH (08:44)
[2022-04-20 09:20] LABS: Basophils # 0.1 K/mcL (0.0-0.2); Basophils % 0.7 %; Eosinophils # 0.4 K/mcL (0.0-0.6); Eosinophils % 4.9 %; Hematocrit 33.6 % (37.5-50.1); Hemoglobin 11.3 g/dL (12.9-16.9); Immature Granulocytes % 0.8 % (0-4); Lymphocytes # 0.9 K/mcL (0.6-4.6); Lymphocytes % 12.5 %; Mean Corpuscular HGB Conc 33.6 g/dL (31.6-35.5); Mean Corpuscular Hemoglobin 30.5 pg (28.0-33.3); Mean Corpuscular Volume 90.8 fL (83.0-100.0); Mean Platelet Volume 9.1 fL (9.4-12.4); Monocytes # 0.7 K/mcL (0.0-1.3); Monocytes % 9.3 %; Neutrophils # 5.2 K/mcL (1.6-8.9); Platelet Count 686 K/mcL (140-400); Red Cell Distribution Width 13.2 % (11.5-14.5); Segmented Neutrophils % 71.8 %; White Blood Count 7.2 K/mcL (4.3-11.1)
[2022-04-20 09:36] LABS: BUN/Creatinine Ratio 12 (6-26); Blood Urea Nitrogen 10 mg/dL (6-20); Calcium 8.9 mg/dL (8.6-10.3); Carbon Dioxide 23 mEq/L (23-29); Chloride 105 mEq/L (98-107); Glucose 149 mg/dL (70-105); Osmolality,Calculated 282 (280-300); Potassium 3.5 mEq/L (3.5-5.1); Sodium 135 mEq/L (136-145)
[2022-04-20] MEDS ORDERED: *HR* HYDROmorphone (PF) 1 MG/ML SYRINGE IVP PRN (10:09)
[2022-04-20] MEDS: Vancomycin 1,750 MG/517.5 ML IV.SOLN IVPB SCH (14:23)
[2022-04-21] MEDS: Acetaminophen 325 MG TABLET PO PRN ×3 (02:14→17:26)
[2022-04-21 05:24] LABS: Basophils # 0.1 K/mcL (0.0-0.2); Basophils % 0.8 %; Eosinophils # 0.4 K/mcL (0.0-0.6); Hematocrit 31.7 % (37.5-50.1); Hemoglobin 10.5 g/dL (12.9-16.9); Immature Granulocytes % 0.7 % (0-4); Lymphocytes # 1.1 K/mcL (0.6-4.6); Lymphocytes % 14.6 %; Mean Corpuscular HGB Conc 33.1 g/dL (31.6-35.5); Mean Corpuscular Hemoglobin 30.6 pg (28.0-33.3); Mean Corpuscular Volume 92.4 fL (83.0-100.0); Mean Platelet Volume 9.5 fL (9.4-12.4); Monocytes # 0.9 K/mcL (0.0-1.3); Monocytes % 12.4 %; Neutrophils # 4.9 K/mcL (1.6-8.9); Platelet Count 629 K/mcL (140-400); Red Blood Count 3.43 M/mcL (4.19-5.50); Red Cell Distribution Width 13.5 % (11.5-14.5); Segmented Neutrophils % 66.5 %; White Blood Count 7.4 K/mcL (4.3-11.1)
[2022-04-21] MEDS: *HR* Heparin 5,000 UNIT/ML VIAL SQ SCH ×2 (05:26→17:27)
[2022-04-21] MEDS ORDERED: Iopamidol - 370 500 ML MLS IVP ONE (06:30)
[2022-04-21 06:55] LABS: BUN/Creatinine Ratio 13 (6-26); Blood Urea Nitrogen 11 mg/dL (6-20); Calcium 8.6 mg/dL (8.6-10.3); Carbon Dioxide 21 mEq/L (23-29); Chloride 105 mEq/L (98-107); Glucose 100 mg/dL (70-105); Osmolality,Calculated 275 (280-300); Potassium 3.4 mEq/L (3.5-5.1); Sodium 133 mEq/L (136-145)
[2022-04-21] MEDS: amLODIPine 5 MG TABLET PO SCH (09:07)
[2022-04-21] MEDS: Sennosides/Docusate Sodium TABLET PO SCH ×2 (09:07→20:24)
[2022-04-21] MEDS: methocarbamoL 750 MG TABLET PO SCH ×3 (09:08→20:24)
[2022-04-21] MEDS: Gabapentin 300 MG CAPSULE PO SCH ×3 (09:08→20:24)
[2022-04-21] MEDS: allopurinoL 300 MG TABLET PO SCH (09:08)
[2022-04-21] MEDS: FluocinoNIDE 0.05% CRM 15 GM TUBE TP SCH ×3 (09:10→22:27)
[2022-04-21] MEDS: polyethylene glycoL 3350 17 GM POWD.PACK PO SCH (09:11)
[2022-04-21] MEDS: Topiramate 100 MG TABLET PO SCH ×2 (09:11→20:24)
[2022-04-21] MEDS ORDERED: Gadolinium Contrast Agent (WT Based) IV PRN (12:41)
[2022-04-21] MEDS ORDERED: Vancomycin 2,000 MG/520 ML IV.SOLN IVPB SCH (15:00)
[2022-04-21] MEDS ORDERED: DAPTOmycin 500 MG in 0.9 % Sodium Chloride 100 ML IVPB SCH (17:00)
[2022-04-21] MEDS: Vancomycin 1,750 MG/517.5 ML IV.SOLN IVPB SCH (18:39)
[2022-04-22] MEDS: *HR* Heparin 5,000 UNIT/ML VIAL SQ SCH (05:13)
[2022-04-22] MEDS: Acetaminophen 325 MG TABLET PO PRN ×3 (05:22→15:35)
[2022-04-22 05:57] LABS: Basophils # 0.1 K/mcL (0.0-0.2); Basophils % 0.9 %; Eosinophils # 0.4 K/mcL (0.0-0.6); Eosinophils % 5.7 %; Hematocrit 32.8 % (37.5-50.1); Hemoglobin 10.8 g/dL (12.9-16.9); Immature Granulocytes % 0.4 % (0-4); Lymphocytes # 1.4 K/mcL (0.6-4.6); Lymphocytes % 18.3 %; Mean Corpuscular HGB Conc 32.9 g/dL (31.6-35.5); Mean Corpuscular Hemoglobin 30.3 pg (28.0-33.3); Mean Corpuscular Volume 92.1 fL (83.0-100.0); Mean Platelet Volume 9.3 fL (9.4-12.4); Monocytes % 13.5 %; Neutrophils # 4.6 K/mcL (1.6-8.9); Platelet Count 603 K/mcL (140-400); Red Blood Count 3.56 M/mcL (4.19-5.50); Red Cell Distribution Width 13.3 % (11.5-14.5); Segmented Neutrophils % 61.2 %; White Blood Count 7.6 K/mcL (4.3-11.1)
[2022-04-22 06:10] LABS: BUN/Creatinine Ratio 11 (6-26); Blood Urea Nitrogen 10 mg/dL (6-20); Calcium 8.7 mg/dL (8.6-10.3); Carbon Dioxide 22 mEq/L (23-29); Chloride 103 mEq/L (98-107); Creatine Kinase 14 Units/L (30-223); Glucose 100 mg/dL (70-105); Osmolality,Calculated 273 (280-300); Potassium 3.7 mEq/L (3.5-5.1); Sodium 132 mEq/L (136-145)
[2022-04-22] MEDS: methocarbamoL 750 MG TABLET PO SCH ×2 (09:48→15:35)
[2022-04-22] MEDS: amLODIPine 5 MG TABLET PO SCH (09:48)
[2022-04-22] MEDS: Topiramate 100 MG TABLET PO SCH (09:48)
[2022-04-22] MEDS: FluocinoNIDE 0.05% CRM 15 GM TUBE TP SCH (09:48)
[2022-04-22] MEDS: Gabapentin 300 MG CAPSULE PO SCH ×2 (09:48→15:35)
[2022-04-22] MEDS: allopurinoL 300 MG TABLET PO SCH (09:48)
[2022-04-22] MEDS: Sennosides/Docusate Sodium TABLET PO SCH (09:48)
[2022-04-22] MEDS ORDERED: FluocinoNIDE 0.05% CRM 15 GM TUBE TP SCH (12:45)
[2022-04-22 14:52] VITALS: BP 124/70; PULSE 84; TEMP 98.1; O2SAT 98
[2022-04-22] MEDS ORDERED: DAPTOmycin 500 MG in 0.9 % Sodium Chloride 100 ML IVPB SCH (15:00)
== END 2022-04-22 17:07 | disposition home health service (06) | DRG 871 ==
LOC: EMEROOARM 09:08 → 3ANU 09:08 → SUATTDRO 16:38 → 3ANU 17:00
PROVIDERS: ADMIT Internal Medicine; ATTEND Family Medicine
PROC: IRDRAIN (2022-04-08 12:00)
PROC: IRFLUID (2022-04-13 12:00)

== ENCOUNTER 2022-04-27 16:30 | Observation (INO) ==
[2022-04-27] MEDS ORDERED: 0.9 % Sodium Chloride 1,000 ML IVC ONE (17:28)
[2022-04-27 18:35] LABS: Basophils # 0.1 K/mcL (0.0-0.2); Basophils % 1.6 %; Eosinophils # 1.3 K/mcL (0.0-0.6); Eosinophils % 14.5 %; Hematocrit 32.8 % (37.5-50.1); Hemoglobin 10.8 g/dL (12.9-16.9); Immature Granulocytes % 0.7 % (0-4); Lymphocytes # 2.1 K/mcL (0.6-4.6); Lymphocytes % 24.3 %; Mean Corpuscular HGB Conc 32.9 g/dL (31.6-35.5); Mean Corpuscular Hemoglobin 30.7 pg (28.0-33.3); Mean Corpuscular Volume 93.2 fL (83.0-100.0); Mean Platelet Volume 9.3 fL (9.4-12.4); Monocytes # 0.9 K/mcL (0.0-1.3); Monocytes % 9.7 %; Neutrophils # 4.3 K/mcL (1.6-8.9); Platelet Count 484 K/mcL (140-400); Red Blood Count 3.52 M/mcL (4.19-5.50); Red Cell Distribution Width 13.4 % (11.5-14.5); Segmented Neutrophils % 49.2 %; White Blood Count 8.8 K/mcL (4.3-11.1)
[2022-04-27 18:53] LABS: Albumin 3.3 g/dL (3.5-5.7); Albumin/Globulin Ratio 0.8 (1.1-2.2); Bilirubin,Total 0.3 mg/dL (0.3-1.0); Calcium 9.1 mg/dL (8.6-10.3); Globulin 4.3 g/dL (2.4-3.5); Potassium 3.7 mEq/L (3.5-5.1); Total Protein 7.6 g/dL (6.4-8.9)
[2022-04-27] MEDS ORDERED: Morphine Sulfate 2 MG/ML SYRINGE IVP ONE (19:30)
[2022-04-27 20:15] LABS: Mucus,Urine Few per lpf (None-Few); RBC,Urine 0-3 per hpf (0-3); Renal Epithelial Cells,Urine Few per hpf (None-Few); Squamous Epithelial Cell,Urine Few per hpf (None-Few); Transitional Epi Cells,Urine Few per hpf (None-Few); WBC,Urine 30-50 per hpf (0-3)
[2022-04-27 20:50] LABS: Bilirubin,Urine Negative (Negative); Blood,Urine Negative (Negative); Clarity,Urine Turbid (Clear); Color,Urine Light-Yellow (Yellow); Glucose,Urine (UA) 30 mg/dL (Normal); Ketones,Urine Negative (Negative); Leukocyte Esterase,Urine Negative (Negative); Nitrite,Urine Negative (Negative); Protein,Urine 30 mg/dL (Neg-Trace); Specific Gravity,Urine 1.012 (1.010-1.025); Urobilinogen,Urine Normal (Normal)
[2022-04-27 20:51] LABS: Hyaline Casts,Urine Moderate per lpf (None Seen)
[2022-04-27] MEDS ORDERED: Naloxone 0.4 MG/ML INJ IVP PRN (21:36)
[2022-04-27] MEDS ORDERED: Ondansetron 4 MG/2 ML VIAL IVP PRN (21:36)
[2022-04-28] MEDS: 0.9 % Sodium Chloride 1,000 ML IVC SCH ×2 (00:04→07:28)
[2022-04-28] MEDS: DAPTOmycin 500 MG in 0.9 % Sodium Chloride 100 ML IVPB SCH (09:37)
[2022-04-28 10:43] LABS: Basophils # 0.1 K/mcL (0.0-0.2); Basophils % 0.9 %; Eosinophils % 11.8 %; Hematocrit 29.5 % (37.5-50.1); Hemoglobin 9.7 g/dL (12.9-16.9); Immature Granulocytes % 0.2 % (0-4); Lymphocytes % 23.1 %; Mean Corpuscular HGB Conc 32.9 g/dL (31.6-35.5); Mean Corpuscular Hemoglobin 30.1 pg (28.0-33.3); Mean Corpuscular Volume 91.6 fL (83.0-100.0); Mean Platelet Volume 9.3 fL (9.4-12.4); Monocytes # 0.8 K/mcL (0.0-1.3); Monocytes % 9.2 %; Neutrophils # 4.7 K/mcL (1.6-8.9); Platelet Count 440 K/mcL (140-400); Red Blood Count 3.22 M/mcL (4.19-5.50); Red Cell Distribution Width 13.1 % (11.5-14.5); Segmented Neutrophils % 54.8 %; White Blood Count 8.6 K/mcL (4.3-11.1)
[2022-04-28 10:58] LABS: Calcium 8.5 mg/dL (8.6-10.3); Magnesium 2.1 mg/dL (1.6-2.6); Potassium 4.2 mEq/L (3.5-5.1)
[2022-04-28 11:33] LABS: Hepatitis B Surface Antigen Nonreactive (Nonreactive)
[2022-04-28 12:04] LABS: Hepatitis A Antibody IgM Nonreactive (Nonreactive); Hepatitis B Core IgM Nonreactive (Nonreactive)
[2022-04-28 14:17] LABS: Hepatitis C Virus Antibody Reactive (Nonreactive)
[2022-04-28 16:01] LABS: INR 1.2; Prothrombin Time 13.9 Seconds (9.4-12.1)
[2022-04-28] MEDS: *HR* HYDROcodone/Acet 5/325 mg TABLET PO PRN ×2 (17:18→23:01)
[2022-04-29 03:33] LABS: Basophils # 0.1 K/mcL (0.0-0.2); Basophils % 1.1 %; Eosinophils % 12.5 %; Hematocrit 26.9 % (37.5-50.1); Immature Granulocytes % 0.7 % (0-4); Lymphocytes # 2.2 K/mcL (0.6-4.6); Lymphocytes % 26.9 %; Mean Corpuscular HGB Conc 33.5 g/dL (31.6-35.5); Mean Corpuscular Hemoglobin 30.7 pg (28.0-33.3); Mean Corpuscular Volume 91.8 fL (83.0-100.0); Mean Platelet Volume 9.4 fL (9.4-12.4); Monocytes % 11.9 %; Neutrophils # 3.8 K/mcL (1.6-8.9); Platelet Count 414 K/mcL (140-400); Red Blood Count 2.93 M/mcL (4.19-5.50); Red Cell Distribution Width 12.8 % (11.5-14.5); Segmented Neutrophils % 46.9 %; White Blood Count 8.2 K/mcL (4.3-11.1)
[2022-04-29 03:48] LABS: Calcium 8.8 mg/dL (8.6-10.3); Potassium 3.6 mEq/L (3.5-5.1)
[2022-04-29] MEDS: *HR* HYDROcodone/Acet 5/325 mg TABLET PO PRN ×4 (05:01→23:39)
[2022-04-29] MEDS: Acetaminophen 325 MG TABLET PO PRN ×3 (08:22→20:58)
[2022-04-29] MEDS: Cefepime HCl 1,000 MG in 0.9 % Sodium Chloride Mini Bag 100 ML IVPB SCH ×2 (11:16→20:23)
[2022-04-29 13:35] LABS: Sodium, Urine 62.4 mEq/L
[2022-04-29] MEDS ORDERED: Melatonin 3 MG TABLET PO ONE (21:59)
[2022-04-30] MEDS: Cefepime HCl 1,000 MG in 0.9 % Sodium Chloride Mini Bag 100 ML IVPB SCH ×2 (02:31→11:38)
[2022-04-30] MEDS: Acetaminophen 325 MG TABLET PO PRN ×2 (02:53→09:02)
[2022-04-30 03:15] LABS: BUN/Creatinine Ratio 17 (6-26); Blood Urea Nitrogen 16 mg/dL (6-20); Calcium 8.8 mg/dL (8.6-10.3); Carbon Dioxide 25 mEq/L (23-29); Chloride 102 mEq/L (98-107); Glucose 97 mg/dL (70-105); Osmolality,Calculated 279 (280-300); Potassium 3.5 mEq/L (3.5-5.1); Sodium 134 mEq/L (136-145)
[2022-04-30 03:21] LABS: Basophils # 0.1 K/mcL (0.0-0.2); Basophils % 0.7 %; Hematocrit 28.3 % (37.5-50.1); Hemoglobin 9.3 g/dL (12.9-16.9); Immature Granulocytes % 0.5 % (0-4); Lymphocytes # 1.8 K/mcL (0.6-4.6); Lymphocytes % 21.8 %; Mean Corpuscular HGB Conc 32.9 g/dL (31.6-35.5); Mean Corpuscular Hemoglobin 29.8 pg (28.0-33.3); Mean Corpuscular Volume 90.7 fL (83.0-100.0); Mean Platelet Volume 9.3 fL (9.4-12.4); Monocytes # 0.9 K/mcL (0.0-1.3); Monocytes % 10.3 %; Neutrophils # 4.5 K/mcL (1.6-8.9); Platelet Count 425 K/mcL (140-400); Red Blood Count 3.12 M/mcL (4.19-5.50); Red Cell Distribution Width 12.8 % (11.5-14.5); Segmented Neutrophils % 54.7 %; White Blood Count 8.3 K/mcL (4.3-11.1)
[2022-04-30] MEDS: *HR* HYDROcodone/Acet 5/325 mg TABLET PO PRN ×2 (05:36→11:41)
[2022-04-30 06:30] VITALS: BP 155/80; PULSE 77; TEMP 98.2; O2SAT 96
[2022-04-30] MEDS: DAPTOmycin 500 MG in 0.9 % Sodium Chloride 100 ML IVPB SCH (08:07)
== END 2022-04-30 12:39 | disposition home health service (06) ==
LOC: 3BNU 16:30 → EMEROOARM 16:30 → SUATTDRO 21:43 → 3BNU 22:21
PROVIDERS: ADMIT Internal Medicine; ATTEND Nurse Practitioner